=== PATIENT | female | born 1975 | race Caucasian/White ===

== ENCOUNTER 2024-11-19 19:33 | Emergency (ER) | payer SELFPAY ==
[2024-11-19 19:39] VITALS: BP 126/88
[2024-11-19 19:53] LABS: % Basophils 0.1 % (0-2); % Eosinophils 2.9 % (0-6); % Immature Granulocytes 0.4 % (0-0.5); % Lymphocytes 29.2 % (20.5-51.1); % Monocytes 6.2 % (1.7-9.3); % Neutrophils 61.2 % (42.2-75.2); Absolute Eosinophils 0.3 10^3/uL (0-0.7); Absolute Lymphocytes 2.5 10^3/uL (1.2-3.4); Absolute Monocytes 0.5 10^3/uL (0.1-0.6); Absolute Neutrophils 5.2 10^3/uL (1.4-6.5); Hemoglobin 12.3 g/dL (12.0-16.0); Mean Corp Hgb Conc. 34.2 g/dL (33.0-37.0); Mean Corpuscular Hgb 29.7 pg (27.0-31.0); Nucleated Red Blood Cells % 0 %; Platelet Count 236 10^3/uL (130-400); Red Blood Cell Count 4.14 10^6/uL (4.20-5.40); Red Cell Dist. Width 12.5 % (11.5-14.5); White Blood Cell Count 8.5 10^3/uL (4.8-10.8)
[2024-11-19 20:12] LABS: ALT (SGPT) 15 U/L (0-35); AST (SGOT) 17 U/L (14-36); Alkaline Phosphatase 97 U/L (38-126); Blood Urea Nitrogen 25 mg/dl (7-17); Calcium 9.9 mg/dl (8.4-10.2); Carbon Dioxide 28 mmol/L (22-30); Chloride 102 mmol/L (98-107); Glucose 107 mg/dl (70-99); Sodium 137 mmol/L (135-145); Total Bilirubin 0.5 mg/dl (0.2-1.3); eGFR > 60.00
[2024-11-19 20:17] LABS: Albumin 3.9 g/dl (3.5-5.0)
[2024-11-19 20:18] LABS: Troponin I < 0.012 ng/ml
[2024-11-19 22:44] VITALS: BP 127/77; BMI 37.4
--- NOTE | 2024-11-19 22:45 | EDRN ---
CP started epigastric area and wrapped under pt's L breast into her back around 1600, pt took 2 81mg aspirin. Pt was sitting on couch, folding laundry when pain started. No calf pain, leg swelling, recent travel. Pt felt little sob. No n/v,
fever/chills/cough, abd pain. CP improved at this time
[2024-11-19 23:00] VITALS: BP 131/77
[2024-11-19 23:21] LABS: Lipase 189 U/L (23-300)
[2024-11-19 23:30] LABS: Troponin I < 0.012 ng/ml
--- NOTE | 2024-11-19 23:42 | ED.GENMED ---
History of Present Illness
General
Chief Complaint: Chest Pain
Time Seen by Provider: 11/19/24 22:34
History of Present Illness
History of Present Illness:
49-year-old female with no significant past medical history presents the emergency department for evaluation of sudden onset central and left-sided chest pain beginning at approximately 1600 today. She took 2 baby aspirin before arrival. Pain is
gradually improved since initial arrival. Denies any fevers or chills. Pain was pleuritic, nonradiating. No shortness of breath, nausea, or vomiting.
Review of Systems
Review of Systems
Allergies reviewed?: Yes
All Other Systems: ROS reviewed and negative except as documented in HPI and ROS
Phy Exam
Physical Exam
Physical Exam:
GEN: Well appearing, NAD, WDWN
HEENT: Oral mucosa moist, no scleral icterus
Cardiac: Regular rate and rhythm, no murmur
Lung: No respiratory distress, no tachypnea, lungs clear to auscultation bilateral
MSK: No gross deformity or injuries
Skin: Good color, no pallor or jaundice, no rashes
Neuro: AO x3, moves all extremities freely
Psych: Calm, cooperative
Scores
Heart Score for Chest Pain Patients
STEMI patient?: No
History: Slightly or Non-Suspicious
ECG: Normal
Age: >45 - <65 years
Risk Factors: No Risk Factors
Troponin: </= Normal Limit
Heart Score for Chest Pain Patients: 1
Heart Score Risk: 2.5% MACE over next 6 weeks
Course
Orders/Labs/Results
Orders:
Orders
11/19/24 19:34
ECG [Electrocardiogram (*1)] Urgent
Reason for Study: Chest Pain
EKG- Treatment ONCE
11/19/24 19:44
Complete Blood Count/With Diff Urgent
Comprehensive Metabolic Panel Urgent
Lipase Urgent
Comment: ADD ON
Troponin I Urgent
11/19/24 22:50
Add On- LAB Urgent
Tests Added?: lipase
Electrocardiogram (*1) Urgent
Reason for Study: Chest Pain
EKG- Treatment ONCE
11/19/24 22:57
Troponin I Urgent
Abnormal Lab Results
11/19/24
19:44
RBC 4.14 L 10^6/uL
(4.20-5.40)
Hct 36.0 L %
(37.0-47.0)
BUN 25 H mg/dl
(7-17)
Glucose 107 H mg/dl
(70-99)
11/19/24 19:44
11/19/24 19:44
Vital Signs
Initial and Last Documented VS:
Initial Vital Signs
Temp Pulse Resp BP Pulse Ox
98.2 F 83 16 126/88 99
11/19/24 19:39 11/19/24 19:39 11/19/24 19:39 11/19/24 19:39 11/19/24 19:39
Last Documented Vital Signs
Temp Pulse Resp BP Pulse Ox
98.1 F 75 14 131/77 97
11/19/24 22:44 11/19/24 23:00 11/19/24 23:00 11/19/24 23:00 11/19/24 23:00
MDM/Problems Addressed
MDM/Problems Addressed:
Initial and repeat EKG and troponin are both reassuring. Low risk for PE by PERC rule. Likely musculoskeletal etiology
*Critical Care Note
Total Time (30-74mins, 75-104mins- exclusive of procedures): Not Applicable
ED Attending Note
-
Portions of this chart may have been created with voice recognition software.� Occasional wrong word or��sound alike� substitutions may have occurred due to the inherent limitations of voice recognition software.
Discharge Plan
Departure
Patient Disposition: Home (Routine Discharge)
Date of Disposition: 11/19/24
Time of Disposition: 23:46
Patient with high blood pressure during this ER visit?: No
Discharge Problem:
Atypical chest pain
Instructions: Chest Pain That Is Not Caused by the Heart (DC)
Prescriptions:
No Action
semaglutide (weight loss) 1 mg/0.5 mL Pen Injector
1 mg SC QWEEK
Rx Instructions:
wednesdays
Referrals:
William Caldera MD [Family Provider] -
Interventions
Interventions:
*Risk Screen - Suicide Last Done: 11/19/24 19:39
*General Assessment Last Done: 11/19/24 22:44
*Neglect/Abuse Screening Last Done: 11/19/24 19:39
*ED- Fall Risk Assessment Last Done: 11/19/24 22:44
*ED COVID-19 Vaccine History Last Done: 11/19/24 22:44
*Nursing Disposition Last Done: 11/19/24 23:53
ED- Cardiac Assessment Last Done: 11/19/24 23:11
Discharge Date and Time
Discharge Date/Time: 11/19/24 23:53
Print Language: BELARUSIAN
== END 2024-11-19 23:53 | disposition home or self-care (01) ==
LOC: EMR 19:33
PROVIDERS: Emergency Medicine; Physician Assistant; EMERGENCY PHYSICIAN Emergency Medicine; FAMILY PHYSICIAN Family Medicine
DX: R07.89 Other chest pain (principal)
CPT/HCPCS: 99283; 80053; 83690; 84484; 85025; 93005